=== PATIENT | female | born 1990 | race Caucasian/White ===

== ENCOUNTER 2017-05-14 18:47 | Emergency (ER) | payer SELFPAY ==
[2017-05-14 19:16] LABS: ABSOLUTE EOSINOPHILS # (AUTO) 0.1 10^3/uL (0.0-0.6); ABSOLUTE LYMPHOCYTES (AUTO) 2.1 10^3/uL (0.5-4.7); ABSOLUTE MONOCYTES (AUTO) 0.5 10^3/uL (0.1-1.4); ABSOLUTE NEUT (AUTO) 5.4 10^3/uL (1.7-8.2); BASOPHILS % (AUTO) 0.6 % (0-2); HEMATOCRIT 41.4 % (36.0-47.0); HEMOGLOBIN 14.4 g/dL (12.0-15.5); HGB HCT DIFFERENCE 1.8; LYMPHOCYTES % (AUTO) 25.8 % (13-45); MEAN CORPUSCULAR HEMOGLOBIN 32.9 pg (27.0-33.4); MEAN CORPUSCULAR HGB CONC 34.9 g/dL (32.0-36.0); MEAN CORPUSCULAR VOLUME 94 fl (80-97); RED BLOOD COUNT 4.39 10^6/uL (3.72-5.28); RED CELL DISTRIBUTION WIDTH 12.9 % (11.5-14.0); SEGMENTED NEUTROPHILS % (AUTO) 66.6 % (42-78); WHITE BLOOD COUNT 8.2 10^3/uL (4.0-10.5)
[2017-05-14 19:35] LABS: ALANINE AMINOTRANSFERASE 43 U/L (9-52); ALBUMIN 3.7 g/dL (3.5-5.0); ALKALINE PHOSPHATASE 40 U/L (38-126); ANION GAP 10 (5-19); ASPARTATE AMINO TRANSFERASE 19 U/L (14-36); BILIRUBIN,DIRECT 0.2 mg/dL (0.0-0.4); BILIRUBIN,TOTAL 0.2 mg/dL (0.2-1.3); BLOOD UREA NITROGEN 12 mg/dL (7-20); CALCIUM 9.3 mg/dL (8.4-10.2); CARBON DIOXIDE 23 mmol/L (22-30); CHLORIDE 106 mmol/L (98-107); CREATININE RESULT 0.83 mg/dL (0.52-1.25); GLUCOSE 118 mg/dL (75-110); POTASSIUM 3.8 mmol/L (3.6-5.0); SODIUM 138.9 mmol/L (137-145); TOTAL PROTEIN 5.8 g/dL (6.3-8.2)
--- NOTE | 2017-05-14 19:35 | RADIOLOGY REPORT (SQ) ---
EXAM DESCRIPTION: CT CERVICAL SPINE WITHOUT COMPLETED DATE/TIME: 05/14/2017 7:19 pm REASON FOR STUDY: neck pain COMPARISON: None. TECHNIQUE: Axial images acquired through the cervical spine without intravenous contrast. Images re viewed with lung, soft tissue and bone windows. Reconstructed coronal and sagittal MPR images review ed. Images stored on PACS. All CT scanners at this facility use dose modulation, iterative reconstruction, and/or weight based d osing when appropriate to reduce radiation dose to as low as reasonably achievable (ALARA). [facility]: Dose Right [facility]: CareDose [facility]: Dose Right [facility]: Teradose 4D [facility]: [employer] RADIATION DOSE: CT Rad equipment meets quality standard of care and radiation dose reduction techniq ues were employed. CTDIvol: 17.2 mGy. DLP: 371 mGy-cm. mGy. LIMITATIONS: None. FINDINGS: ALIGNMENT: Anatomic. MINERALIZATION: Normal. VERTEBRAL BODIES: No fractures or dislocation. DISCS: No significant disc disease. FACETS, LATERAL MASSES, POSTERIOR ELEMENTS: No fractures. No dislocation. No acute findings. HARDWARE: None in the spine. VISUALIZED RIBS: No fractures. LUNG APICES AND SOFT TISSUES: No significant or acute findings. OTHER: No other significant finding. IMPRESSION: NO ACUTE OR SIGNIFICANT FINDINGS IN THE CERVICAL SPINE. TECHNICAL DOCUMENTATION: JOB ID: [id number] Quality ID # [id number]: Final reports with documentation of one or more dose reduction techniques (e.g., Au tomated exposure control, adjustment of the mA and/or kV according to patient size, use of iterative reconstruction technique) 2010 [employer]- All Rights Reserved
[2017-05-14 19:37] LABS: ALCOHOL < 10 mg/dL (NONE DETECTED)
[2017-05-14 20:17] LABS: APPEARANCE,URINE SLIGHTLY-CLOUDY; BILIRUBIN,URINE NEGATIVE (NEGATIVE); GLUCOSE, URINE NEGATIVE (NEGATIVE); KETONES,URINE NEGATIVE (NEGATIVE); LEUKOCYTE ESTERASE,URINE NEGATIVE (NEGATIVE); NITRITE,URINE NEGATIVE (NEGATIVE); PROTEIN,URINE 100 mg/dL (NEGATIVE); URINE SPECIFIC GRAVITY 1.019; UROBILINOGEN,URINE NEGATIVE mg/dL (<2.0)
[2017-05-14 20:27] LABS: URINE BARBITURATES SCREEN NEGATIVE; URINE METHADONE SCREEN NEGATIVE; URINE OPIATES LOW NEGATIVE; URINE PHENCYCLIDINE SCREEN NEGATIVE
--- NOTE | 2017-05-14 20:27 | ER Document Report ---
ED General - General Chief Complaint: Possible Overdose Stated Complaint: SUICIDAL IDEATION Time Seen by Provider: 05/14/17 19:05 Mode of Arrival: Ambulatory Information source: Patient Notes: 27-year-old female presents with history of depression suicidal ideations who has been under a lot of stress lately attempted to harm herself by taking Lexapro. Patient notes she took 150 mg total Patient knows to feeling a little drowsy otherwise has no symptoms. She admits to losing her job losing her marriage losing her house TRAVEL OUTSIDE OF THE [place] IN LAST 30 DAYS: No - HPI Onset: Just prior to arrival Onset/Duration: Sudden Quality of pain: No pain Severity: Mild Pain Level: Denies Associated symptoms: None Exacerbated by: Other Relieved by: Denies Similar symptoms previously: No - Patient has never harmed herself before Recently seen / treated by doctor: Yes - Related Data Allergies/Adverse Reactions: No Known Allergies Allergy (Verified 05/14/17 18:59) Home Medications: Current Home Medications Escitalopram Oxalate [Lexapro 10 mg Tablet] 10 mg PO QHS 05/14/17 [History] Fluvoxamine Maleate 1 tab PO DAILY 05/14/17 [History] Past Medical History - Social History Smoking Status: Current Every Day Smoker Cigarette use (# per day): Yes Chew tobacco use (# tins/day): No Smoking Education Provided: No Frequency of alcohol use: Occasional Drug Abuse: Marijuana Family History: Reviewed & Not Pertinent Patient has suicidal ideation: Yes Patient has homicidal ideation: No Renal/ Medical History: Reports: Hx Kidney Stones - 2006- right. Denies: Hx Peritoneal Dialysis Psychiatric Medical History: Reports: Hx Depression - Immunizations Hx Diphtheria, Pertussis, Tetanus Vaccination: Yes Review of Systems - Review of Systems Notes: REVIEW OF SYSTEMS: CONSTITUTIONAL : Denies fever, chills, or sweats. Denies recent illness. EENT: Denies eye, ear, throat, or mouth pain or symptoms. Denies nasal or sinus congestion or discharge. Denies throat, tongue, or mouth swelling or difficulty swallowing. CARDIOVASCULAR: Denies chest pain. Denies palpitations or racing or irregular heart beat. Denies ankle edema. RESPIRATORY: Denies cough, cold, or chest congestion. Denies shortness of breath, difficulty breathing, or wheezing. GASTROINTESTINAL: Denies abdominal pain or distention. Denies nausea, vomiting , or diarrhea. Denies blood in vomitus, stools, or per rectum. Denies black, tarry stools. Denies constipation. GENITOURINARY: Denies difficulty urinating, painful urination, burning, frequency, blood in urine, or discharge. FEMALE GENITOURINARY: Denies vaginal bleeding, heavy or abnormal periods, irregular periods. Denies vaginal discharge or odor. MUSCULOSKELETAL: Denies back or neck pain or stiffness. Denies joint pain or swelling. SKIN: Denies rash, lesions or sores. HEMATOLOGIC : Denies easy bruising or bleeding. LYMPHATIC: Denies swollen, enlarged glands. NEUROLOGICAL: Admits to drowsy PSYCHIATRIC: Admits to suicidal ideation ALL OTHER SYSTEMS REVIEWED AND NEGATIVE. PHYSICAL EXAMINATION: GENERAL: Well-appearing, well-nourished and in no acute distress. HEAD: Atraumatic, normocephalic. EYES: Pupils equal round and reactive to light, extraocular movements intact, conjunctiva are normal. ENT: Nares patent, oropharynx clear without exudates. Moist mucous membranes. NECK: Normal range of motion, supple without lymphadenopathy LUNGS: Breath sounds clear to auscultation bilaterally and equal. No wheezes rales or rhonchi. HEART: Regular rate and rhythm without murmurs ABDOMEN: Soft, nontender, nondistended abdomen. No guarding, no rebound. No masses appreciated. Female : deferred Musculoskeletal: Normal range of motion, no pitting or edema. No cyanosis. NEUROLOGICAL: Cranial nerves grossly intact. Normal speech, normal gait. Normal sensory, motor exams PSYCH: Tearful SKIN: Warm, Dry, normal turgor, no rashes or lesions noted. Dictation was performed using [employer] voice recognition software Physical Exam - Vital signs Vitals: Temp Pulse Resp BP Pulse Ox 98.0 F 92 18 115/65 98 05/14/17 18:58 05/14/17 18:58 05/14/17 18:58 05/14/17 18:58 05/14/17 18:58 Course - Re-evaluation Re-evalutation: 05/14/17 20:26 Medically patient is stable, the amount of Lexapro taken is not life- threatening she has no symptoms at this time, EMS spoke with poison control as well. - Vital Signs Vital signs: Temp Pulse Resp BP Pulse Ox 98.0 F 92 18 115/65 98 05/14/17 18:58 05/14/17 18:58 05/14/17 18:58 05/14/17 18:58 05/14/17 18:58 - Laboratory Result Diagrams: 05/14/17 19:02 05/14/17 19:02 Laboratory results interpreted by me: 05/14/17 05/14/17 19:02 19:55 Glucose 118 H Total Protein 5.8 L Urine Protein 100 H Urine Blood MODERATE H Salicylates < 1.0 L Acetaminophen < 10 L Discharge - Discharge Clinical Impression: Suicidal ideation Condition: Stable Disposition: PSYCH HOSP/UNIT
--- NOTE | 2017-05-14 22:50 | EKG REPORT ---
SEVERITY:- BORDERLINE ECG - SINUS RHYTHM PROBABLE LEFT ATRIAL ABNORMALITY : Confirmed by: Carly Thomas 14-May-2017 22:49:22
--- NOTE | 2017-05-15 10:12 | ER Document Report ---
Doctor's Note Notes: 05/15/17 10:11 Rounds: Chart reviewed and patient interviewed. Patient has a history of depression and suicidal thoughts. She says that she took about 15 Lexapro pills about 5 PM yesterday. Does not feel any effects of that medication at this time. Her vital signs have remained normal. Lab studies were all essentially normal. Patient appears to be medically stable for transfer or discharge. Hemant Yañez MD
[2017-05-15 11:01] VITALS: BP 112/70
--- NOTE | 2017-05-16 06:23 | PSYCHOLOGICAL NOTE ---
Psych Note - Psych Note Psych Note: Patient is a 27 year old female who presented to the ED last evening for history of depression, increased stress (lost job, marriage, house), and SI via OD on 150MG Lexapro. She stated she was glad she was alive. She stated she had thoughts of SI before but hd never taken action before. She stated everything caught up with her in losing her marriage, job, and having to be out of the homeshe currently is in 2 days before Peter. She stated the Lexapro was an old prescription of hers. She noted her outpatient provider is [facility] [place], she was started on Luvox 100MG QD a month ago (had started at 50MG, often given for OCD but being utilized to address her anxiety ), and has been going for therapy since September 2016. She stated she goes every other week. She noted this is her first medication regimen in 2 years. She mentioned previous medications of Lexapro, Ativan , Prozac and Buspirone. She stated her boyfriend informed her mother about patient taking pills and mother called . She identified she feels like there is something more than depression going on. She stated her head is never quiet, it is hard to get her thoughts together, has racing thoughts, anxiety is worse than depression, she will wake up several times throughout the night feeling nervous, and there are days she has to argue with herself to get out of bed." She reported she just ended her menstrual cycle and she has terrible problems with it (mood). She denied previous MH hospitalizations. Patient was alert and oriented to person, place, time and situation. Mood was euthymic with congruent affect. She denied current SI/HI. She admitted to previous SI thoughts that had been general and never taking actions. She admitted to OD of Lexapro but being glad she is alive. She talked about staying with her mother for the holidays and having a home to move into it just needs some cleaning and fixing up first (future oriented thinking). She did not appear to be responding to internal stimuli AEB fair eye contact, answering questions appropriately when addressed, staying on topic and carrying on dialogue conversation. Thought processes were organized and linear. Conversational speech was WNL for rate, tone and prosody. Intellectual abilities are estimated to be average. Insight, judgment and impulse control were fair AEB remorse and being glad she is alive, processing stress in her life , as well as the future oriented thinking. Patient's adult aged sister and mother were present at different times as supports (one was always present and patient was never alone for and length of time). Sister reported living 35 minutes away if even. Mother stated patient would be staying with her and would not be alone. She also mentioned patient's father, aunt, and a friend who are all close and supportive. Diagnosis: V61.03 (Z63.5) Disruption of Family by Separation or Divorce V62.29 (Z56.9) Other Problem Related to Employment V62.89 (Z65.8) Other Problem Related to Psychosocial [id number] (F43.20 ) Adjustment Disorder, Unspecified 311 (F32.9) Unspecified Depressive Disorder by History R/O 296.80 (F31.9) Unspecified Bipolar and Related Disorder Impression/Plan: Patient is psychiatrically cleared. She does not meet [place] [address] [facility] IVC criteria. She denied current SI, past attempts, and relief/regret she is still alive. She endorsed future oriented thinking. She denied HI. There was no observed psychosis. She has a support syste, of family, friends, and professionals. Mother stated patient would not be alone and agreed to have other adults in control of medications (all in the home to include other people' s as well as O-T-C) as well as administration to patient. She already has a therapy appointment tonight (05/15/17) at 1660 at [facility]. She stated she will attend it and she was encouraged to inform therapist about crisis. Called [facility] about scheduling medication management appointment and they noted they have no prescriber until the second week of May. Patient made alberto of this and stated she has enough medication for the rest of this month as well as at least to other refills. Provided outpatient resource sheet which documented therapy session for this evening, high lighted both MCM numbers, and also pointed out to other local agencies ([facility]Note [facility], [facility]) that would see her for medication management as self pay. Provided mother with separate sheet that highlighted both MCM numbers. Consulted with Dr. Smallwood regarding the management and care of patient. ED Physician in agreement with recommendation.
== END 2017-05-15 11:13 | disposition home or self-care (01) ==
LOC: ER 18:47
DX: R45.851 Suicidal ideations (principal); T43.222A Poisoning by selective serotonin reuptake inhibitors, intentional self-harm, initial encounter; Y92.9 Unspecified place or not applicable; Z79.899 Other long term (current) drug therapy; F17.210 Nicotine dependence, cigarettes, uncomplicated
CPT/HCPCS: 36415; 72125; 80053; 80307; 81001; 84703; 85025; 93005; 93010; 99285